=== PATIENT | female | born 1950 | race Hispanic/Latino ===

== ENCOUNTER → 2018-04-16 | Outpatient (CLI) | payer OTHER | END | disposition home or self-care (01) | LOC: OIH 12:39 | PROVIDERS: ATTEND Internal Medicine Cardiovascular Disease | DX: Z13.6 Encounter for screening for cardiovascular disorders (principal) | CPT/HCPCS: 75571 ==

== ENCOUNTER 2021-07-25 09:30 | Day surgery (SDC) | payer OTHER ==
[2021-07-22 11:07] LABS: BASOPHILS % (AUTO) 0.4 % (0.0-5.0); EOSINOPHILS % (AUTO) 2.7 % (0.0-8.0); HEMATOCRIT 42.7 % (36-48); LYMPHOCYTES % (AUTO) 25.3 % (21.0-51.0); MEAN CORPUSCULAR HEMOGLOBIN 27.3 pg (27.0-33.0); MEAN CORPUSCULAR HGB CONC 32.6 g/dL (32.0-36.0); MEAN CORPUSCULAR VOLUME 83.9 fL (79-99); MONOCYTES % (AUTO) 6.2 % (3.0-13.0); PLATELET COUNT (AUTO) 253 K/uL (130-400); RED BLOOD CELL COUNT(AUTO) 5.09 MIL/uL (4.00-5.50); RED CELL DISTRIBUTION WIDTH 13.3 % (11.0-15.5); WHITE BLOOD COUNT (AUTO) 9.2 K/uL (4.8-10.8)
[2021-07-22 11:16] LABS: CREATININE 0.9 mg/dL (0.5-1.5); POTASSIUM 4.2 mmol/L (3.5-5.1)
[2021-07-22 11:17] LABS: INR 1.06 (0.85-1.15); PROTHROMBIN TIME 11.5 SEC (9.6-11.6)
[2021-07-22 11:18] LABS: PARTIAL THROMBOPLASTIN TIME 28.6 SEC (26.3-35.5)
[2021-07-22 12:28] VITALS: BP 160/78
[2021-07-25] VITALS (11 sets, daily range): BP systolic 141–193; BP diastolic 62–89
[~2021-07-25] VITALS: Ht 157.5 cm; Wt 65.1 kg
[~2021-07-25 09:30] MED LIST: 0.9%NACL 1000ML 1,000 ML IV SCH; ASPI-1443 PO; CEFAZOLIN SODIUM 1 GM VIAL IVP ONE; DIPH25 PO; GLIP10TA9 PO; METF-446 PO; METO-409 PO; MONT-39 PO; ROSU5TAB12 PO
[2021-07-25] MEDS ORDERED: CEFAZOLIN SODIUM 1 GM VIAL ONE (09:37)
[2021-07-25] MEDS ORDERED: BUPIVACAINE/PF 0.25% 30ML VIAL IJ ONE (09:37)
[2021-07-25] MEDS ORDERED: MIDAZOLAM HCL 1 MG/ML 2ML VIAL ONE ×3 (09:38→11:26)
[2021-07-25] MEDS ORDERED: MEPERIDINE-PF 25 MG/ML SYG ONE ×3 (09:38→11:26)
[2021-07-25] MEDS ORDERED: LIDOCAINE HCL 1% MDV 50ML VIAL ONE (09:38)
[2021-07-25] MEDS ORDERED: IODIXANOL 320 MG/ML 100 ML VIAL ONE (09:39)
[2021-07-25] MEDS ORDERED: ONDANSETRON 4MG INJ IV PRN (12:30)
[2021-07-25] MEDS ORDERED: GLUCAGON 1MG KIT 1 MG ML IM PRN (12:30)
[2021-07-25] MEDS ORDERED: ACETAMINOPHEN 325 MG TAB PO PRN ×2 (12:30)
[2021-07-25] MEDS ORDERED: DEXTROSE 50%-WATER 50 ML DISP.SYRIN IV PRN (12:30)
[2021-07-25] MEDS ORDERED: CEFAZOLIN SODIUM 1 GM VIAL IVP SCH (16:00)
[2021-07-25] MEDS ORDERED: INSULIN HUMULIN R 100 UNIT/ML 3ML SQ SCH (16:30)
== END 2021-07-25 17:25 | disposition home or self-care (01) ==
LOC: DAH 09:30
PROVIDERS: ATTEND Internal Medicine Cardiovascular Disease
DX: I44.2 Atrioventricular block, complete (principal); I25.5 Ischemic cardiomyopathy; I11.0 Hypertensive heart disease with heart failure; I50.42 Chronic combined systolic (congestive) and diastolic (congestive) heart failure; E11.9 Type 2 diabetes mellitus without complications; Z98.890 Other specified postprocedural states; Z79.84 Long term (current) use of oral hypoglycemic drugs; Z79.82 Long term (current) use of aspirin; Z79.01 Long term (current) use of anticoagulants; Z79.899 Other long term (current) drug therapy
CPT/HCPCS: 33225; 33229; 36415; 71045; 80048; 82948 ×2; 85025; 85610; 85730; 93005; A4215; A4216; A4221; A4222; A4223 ×3; A4606; A4663; C1769 ×2; C1894; C1900; C2621; J0690 ×2; J2175 ×3; J2250 ×3; J3490 ×2; J7030 ×2; Q9967; 99156; 99157